=== PATIENT | male | born 1950 | race Caucasian/White ===

== ENCOUNTER 2019-07-15 06:02 | Day surgery (SDC) | payer MEDICARE, OTHER ==
[~2019-07-15] VITALS: Ht 170.2 cm; Wt 88.2 kg
[2019-07-15] MEDS ORDERED: LIDOCAINE 4% 50 ML SOLUTION TP ONE (06:03)
[2019-07-15] MEDS ORDERED: ALBUTEROL SULFATE 2.5 MG/0.5 ML NEB SOLUTION NEB ONE (06:03)
[2019-07-15] MEDS ORDERED: LIDOCAINE 2% 30 ML JELLY TP ONE (06:03)
[2019-07-15] MEDS ORDERED: BENZOCAINE 20% 50 MCG/SPRAY 57 GM TP ONE (06:03)
[2019-07-15] MEDS ORDERED: SODIUM CHLORIDE 0.9% 1,000 ML IV ONE ×2 (06:10→06:30)
[2019-07-15 07:21] LABS: GLUCOMETER DEV NAME(LOC) SDS.; GLUCOSE,POINT OF CARE 64 MG/DL (70-110)
[2019-07-15] MEDS ORDERED: MULT-248 PO (07:33)
[2019-07-15] MEDS ORDERED: INSNOV SQ (07:33)
[2019-07-15] MEDS ORDERED: MYCO360T PO (07:33)
[2019-07-15] MEDS ORDERED: TACR1 PO (07:33)
[2019-07-15] MEDS ORDERED: PRED5 PO (07:33)
[2019-07-15] MEDS ORDERED: [UNRECOGNIZED DRUG - OTHER] SQ (07:33)
[2019-07-15] MEDS ORDERED: CYAN250010 PO (07:33)
[2019-07-15] MEDS ORDERED: AMLO10TA7 PO (07:33)
[2019-07-15] MEDS ORDERED: ASPI81 PO (07:33)
[2019-07-15] MEDS ORDERED: METF-960 PO (07:33)
[2019-07-15] MEDS ORDERED: CHOL100018 PO (07:33)
[2019-07-15] MEDS ORDERED: ATOR10TA84 PO (07:33)
[2019-07-15] MEDS ORDERED: MIDAZOLAM HCL 2 MG/2 ML VIAL ONE (07:56)
[2019-07-15] MEDS ORDERED: FentaNYL CITRATE-PF 100 MCG/2 ML VIAL ONE (07:56)
[2019-07-15] MEDS ORDERED: MethylPREDNISolone SOD SUCC 125 MG/2 ML VIAL IVP ONE (08:30)
[2019-07-15] MEDS ORDERED: DEXTROSE 5%-0.45% SODIUM CHL 1,000 ML IV ONE (08:42)
[2019-07-15] MEDS ORDERED: DEXTROSE 5%-0.45% SODIUM CHL 500 ML IV ONE (08:45)
[2019-07-15 08:51] LABS: GLUCOMETER DEV NAME(LOC) PACU.; GLUCOSE,POINT OF CARE 63 MG/DL (70-110)
[2019-07-15] MEDS ORDERED: MethylPREDNISolone SOD SUCC 125 MG/2 ML VIAL ONE (08:57)
[2019-07-15] MEDS ORDERED: OXYGEN THERAPY IH SCH (20:00)
== END 2019-07-15 09:55 | disposition home or self-care (01) ==
LOC: SURGERY 06:02
PROVIDERS: ATTEND Internal Medicine Critical Care Medicine
DX: J38.4 Edema of larynx (principal); B37.0 Candidal stomatitis; J45.909 Unspecified asthma, uncomplicated; J98.8 Other specified respiratory disorders; I10 Essential (primary) hypertension; E11.9 Type 2 diabetes mellitus without complications; Z79.899 Other long term (current) drug therapy; Z91.041 Radiographic dye allergy status; Z94.0 Kidney transplant status; Z98.890 Other specified postprocedural states
CPT/HCPCS: 31623; 31624; 71045; 82962; 87015; 87070; 87101; 87205; 87206; 87220; 88108; 88312; J2250; J2930; J3010; J7030